=== PATIENT | male | born 1975 | race African-American/Black ===

== ENCOUNTER 2016-12-24 07:10 | Emergency (ER) | payer OTHER ==
[~2016-12-24] VITALS: Ht 172.7 cm; Wt 68.0 kg
--- NOTE | ~2016-12-24 | EKG ---
[address] [place] [address] ELECTROCARDIOGRAM REPORT Name: EMILIANO STONERMILEY Suh Room #: [facility] [id number] Admission: 12/24/16 Attend Phys: Discharge: Date of : 77 Report #: [id number] THIS REPORT FOR: //name// 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
[~2016-12-24 07:10] MED LIST: AUGMENTIN 875875 MG PO; NORCO 5-325 TA1 EACH PO
[2016-12-24 07:49] LABS: ABSOLUTE NEUTROPHILS 5.3 thou/uL (1.4-8.2); BASOPHILS 0.7 % (0.0-2.0); EOSINOPHILS 5.5 % (0.0-3.0); HEMATOCRIT 44.9 % (42.0-52.0); HEMOGLOBIN 15.1 gm/dL (14.0-18.0); LYMPHOCYTES 40.1 % (24.0-44.0); MANUAL DIFF NO; MCH 32.1 pg (26.0-34.0); MCHC 33.5 g/dL (28.0-37.0); MCV 95.7 fL (80.0-100.0); MONOCYTES 6.3 % (1.0-8.0); PLATELET COUNT 201 thou/uL (150-400); POLYS 47.4 % (36.0-66.0); RDW 13.5 % (10.5-14.5); WBC 11.1 thou/uL (4.0-11.0)
[2016-12-24 07:58] LABS: ANION GAP 19 mmol/L (7-16); BUN 12 mg/dL (7-18); CHLORIDE 105 mmol/L (98-107); CO2 17 mmol/L (21-32); CREATININE 1.3 mg/dL (0.7-1.3); GLUCOSE 222 mg/dL (74-106); POTASSIUM 3.1 mmol/L (3.5-5.1); SODIUM 141 mmol/L (136-145)
[2016-12-24 07:58] LABS: AMP/METHAMP Negative (Negative); BARBITURATES Negative (Negative); BENZODIAZEPINES Negative (Negative); COCAINE Negative (Negative); METHADONE Negative (Negative); OPIATES Negative (Negative); PCP Negative (Negative); THC POSITIVE (Negative)
[2016-12-24 08:02] LABS: ALBUMIN 3.7 g/dL (3.4-5.0); ALKALINE PHOSPHATASE 78 U/L (46-116); DIRECT BILIRUBIN < 0.1 mg/dL (<0.1-0.3); MAGNESIUM 2.1 mg/dL (1.8-2.4); SGOT 31 U/L (15-37); SGPT 36 U/L (30-65); TOTAL BILIRUBIN 0.4 mg/dL (<0.1-1.0); TOTAL PROTEIN 7.1 g/dL (6.4-8.2)
[2016-12-24 09:38] VITALS: BP 102/67
== END 2016-12-24 09:39 | disposition home or self-care (01) ==
LOC: ER 07:10
PROVIDERS: Emergency Medicine
DX: R56.9 Unspecified convulsions (principal); F17.210 Nicotine dependence, cigarettes, uncomplicated